=== PATIENT | male | born 2000 | race Caucasian/White ===

== ENCOUNTER 2025-05-08 10:51 | Emergency (ER) | payer OTHER ==
[2025-05-08 11:37] LABS: BASOPHILS ABSOLUTE AUTO 0.04 K/uL (0.00-0.20); BASOPHILS PERCENT AUTO 0.6 % (0.0-2.0); EOSINOPHILS ABSOLUTE AUTO 0.29 K/uL (0.00-0.50); EOSINOPHILS PERCENT AUTO 4.3 % (0.0-5.0); IMMATURE GRAN ABSOLUTE AUTO 0.01 10^3/uL (0.00-0.04); IMMATURE GRAN PERCENT AUTO 0.1 % (0.0-0.4); LYMPHOCYTES ABSOLUTE AUTO 3.07 K/uL (0.50-3.50); LYMPHOCYTES PERCENT AUTO 45.7 % (10.0-50.0); MONOCYTES ABSOLUTE AUTO 0.51 K/uL (0.00-1.00); MONOCYTES PERCENT AUTO 7.6 % (2.0-14.0); NEUTROPHILS ABSOLUTE AUTO 2.80 K/uL (1.40-7.00); NEUTROPHILS PERCENT AUTO 41.7 % (45.0-80.0); PLATELET COUNT,PLT 211 K/uL (150-350); RED BLOOD CELL COUNT 5.87 M/uL (4.33-5.41); RED CELL DISTRIBUTION WIDTH 11.6 % (11.2-14.1); WHITE BLOOD CELL COUNT,WBC 6.7 K/uL (4.0-10.2)
[2025-05-08 11:44] LABS: ALANINE AMINOTRANSFERASE,ALT 22 U/L (12-78); ASPARTATE AMNIOTRANSFERASE,AST 20 U/L (15-37); BILIRUBIN TOTAL 1.0 mg/dL (0.2-1.0); BLOOD UREA NITROGEN,BUN 22 mg/dL (7-18); CARBON DIOXIDE,CO2 27.7 mmol/L (21.0-32.0); CHLORIDE,CL 105 mmol/L (98-107); CREATININE 1.22 mg/dL (0.51-1.17); ESTIMATED GFR 86 mL/min (>=60); GLUCOSE RANDOM 111 mg/dL (70-99); POTASSIUM,K 3.8 mmol/L (3.5-5.1); PROTEIN TOTAL,TP 7.1 g/dL (6.4-8.2); SODIUM,NA 140 mmol/L (136-145)
[2025-05-08] MEDS ORDERED: Bacitracin Oint 1 GM U/D Packet TOP ONE (12:10)
== END 2025-05-08 12:20 | disposition home or self-care (01) ==
LOC: LL.ED 10:51
DX: S20.419A Abrasion of unspecified back wall of thorax, initial encounter (principal); V49.49XA Driver injured in collision with other motor vehicles in traffic accident, initial encounter; Y93.89 Activity, other specified
CPT/HCPCS: 36415; 80053; 85025; 99284